=== PATIENT | female | born 1980 | race Caucasian/White ===

== ENCOUNTER 2022-10-14 13:03 | Emergency (ER) | payer BC, SELFPAY ==
[2022-10-14 13:15] VITALS: BP 133/83; PULSE 81; RESP 16; O2SAT 98
--- NOTE | 2022-10-14 13:24 | ED.SKABFB ---
HPI - Skin/Abscess/Foreign Bdy General Chief complaint: Skin/Abscess/Foreign Body Stated complaint: bug bite Time Seen by Provider: 10/14/22 13:15 Source: patient and RN notes reviewed Mode of arrival: ambulatory Limitations: dementia History of Present Illness HPI narrative: 42-year-old female presents concern for redness, warmth, tenderness on her 5th digit and at the base of the digit the right hand. Reports she was stung by a wasp on Friday. Reports she had been taking Benadryl and area was getting smaller. Reports morning the area is getting larger, more tender and was spreading down her hand. MD complaint: insect bite/sting and other (Redness) Related Data Allergies Allergy/AdvReac Type Severity Reaction Status Date / Time No Known Allergies Allergy Unverified 10/14/22 13:16 Review of Systems Review of Systems: CONSTITUTIONAL: Denies malaise, chills, sweats, or fever. EYES: Denies redness, or discharge. ENT: Denies rhinorrhea, congestion, swollen lips, swollen tongue CARDIOVASCULAR: Denies chest pain, palpitations, or edema. RESPIRATORY: Denies cough or dyspnea. GASTROINTESTINAL: Denies abdominal pain, nausea, vomiting SKIN: Reports redness, swelling, warmth, tenderness of the 5th digit and beneath the digit. Denies purulent drainage, vesicles, bullae, numbness, pain beyond proportion MUSCULOSKELETAL: Denies joint pain or myalgia. NEUROLOGIC: Denies headache. All systems reviewed & are unremarkable except as noted in HPI and below PMFSH Comments At time of signature, agree with nursing past medical, surgical, social and family history. There is no relevant family history pertinent to the presenting complaint Exam Narrative: GENERAL: Well-appearing, well-nourished, and in no acute distress. HEAD: Normocephalic, atraumatic. EYES: PERRLA, conjunctivae clear ENT: Mucous membranes moist. NECK: Supple. No lymphadenopathy CHEST: Clear to auscultation. No respiratory distress. HEART: Regular rate and rhythm. SKIN: Warm, dry. 6 cm x 3 cm area of erythema, induration, tenderness, warmth with sharp margins noted to the 5th digit the right hand extending below the digit into the hand. No vesicles, bullae, necrosis, ecchymosis, crepitus noted. NEURO: Alert and oriented x3. PSYCH: Normal mood and affect Course Course Emergency Course: Patient is aware of diagnosis, understands and agrees to treatment plan. Anticipatory guidance given. Patient agrees to follow-up as directed and is aware of reasons to seek care at the emergency department. Portions of this record may have been created with voice recognition software Level of Care: Express Care Visit Vital Signs Vital signs: Vital Signs Pulse Rate 81 10/14/22 13:15 Respiratory Rate 16 10/14/22 13:15 Blood Pressure 133/83 10/14/22 13:15 Pulse Oximetry 98 10/14/22 13:15 Oxygen Delivery Room Air 10/14/22 13:15 Pulse Rate 81 10/14/22 13:15 Respiratory Rate 16 10/14/22 13:15 Blood Pressure 133/83 10/14/22 13:15 Pulse Oximetry 98 10/14/22 13:15 Oxygen Delivery Room Air 10/14/22 13:15 Reviewed. MDM - Skin/Abscess/Foreign Bdy MDM Narrative Medical decision making narrative: Does not appear at this time to be erythema multiforme, bullous, SJS, TEN; no evidence at this time to suggest RMSF, NSTI, endocarditis or Lyme disease; patient looks well, nontoxic and is tolerating oral intake; no neurologic signs or symptoms; no headache, photophobia or neck pain; afebrile. Patient does not have history of of penetrating trauma, laceration, blunt trauma, recent surgery, immunosuppression, malignancy, obesity, alcoholism, corticosteroid use. Discussed the importance of follow-up, patient agrees; question, cellulitis versus necrotizing soft tissue infection versus abscess. Critical Care Time Critical Care Time Critical Care Time: No Discharge Plan Discharge Clinical Impression: Infected insect bite or sting Patient Disposition:
== END 2022-10-14 13:31 | disposition home or self-care (01) ==
PROVIDERS: Emergency Provider Nurse Practitioner; PCP Internal Medicine
DX: L08.9 Local infection of the skin and subcutaneous tissue, unspecified (principal); T63.461A Toxic effect of venom of wasps, accidental (unintentional), initial encounter
CPT/HCPCS: 99203; G0463

== ENCOUNTER 2022-11-11 08:14 | Emergency (ER) | payer BC, SELFPAY ==
[2022-11-11 08:28] VITALS: BP 153/80; PULSE 71; RESP 20; TEMP 36.6; O2SAT 99
--- NOTE | 2022-11-11 08:30 | ED.GENADULT ---
HPI - General Adult General Chief complaint: Extremity Problem,Nontraumatic Stated complaint: Left shoulder pain Source: patient and RN notes reviewed History of Present Illness HPI narrative: 42 yo F presents to urgent care with complaints of left posterior shoulder pain. Patient states she has been having this pain ever since she woke up on either or Friday last week. Patient reports pain with any kind of movement with her left shoulder is. Patient reports less pain when she holds her left arm over her head. Denies any numbness or tingling down her arm. Patient states the pain will radiate to her left upper arm. Denies any injury or trauma. Denies any fevers, chills, chest pain, or shortness of breath. Patient had made a sling for comfort. Patient has been using ibuprofen, Tylenol, and lidocaine patches at home without relief. Patient has also been applying warm and cold compresses without relief. Related Data Allergies Allergy/AdvReac Type Severity Reaction Status Date / Time No Known Allergies Allergy Unverified 11/11/22 08:50 Review of Systems Review of Systems: Pertinent positives and pertinent negatives per HPI. PMFSH Comments At the time of my signature, I reviewed and agree with the nursing past medical, surgical, social, and family history. There is no relevant family history pertinent to the patient complaint. Exam Narrative: GENERAL: This is a well-nourished, well-developed patient, in no apparent distress. HEAD: normocephalic, atraumatic. EYES:Sclera clear/white. Vision is grossly intact. EARS: External ears normal, auditory canals clear and without drainage. Hearing grossly intact. NOSE: External nose normal with no obvious nasal discharge, nares without redness, no rhinorrhea. THROAT: Mucous membranes moist, posterior pharynx clear. NECK: Neck supple, non-tender without lymphadenopathy, masses or thyromegaly. CARDIOVASCULAR: Regular rate and rhythm without murmurs, gallops, or rubs. RESPIRATORY: Clear to auscultation. Breath sounds equal bilaterally. No wheezes, rales, or rhonchi. SKIN: warm, intact with no suspicious lesions or rash, good texture and turgor. NEURO: awake, alert, and oriented to person, place and time. There were no obvious focal neurologic abnormalities. EXTREMITIES: No clubbing, cyanosis, or edema. No joint tenderness, effusion, or edema noted. Pt reports pain with any movement of her left shoulder. Pt reports less pain when she holds her left arm over her head. Course Course Level of Care: Express Care Visit Vital Signs Vital signs: Vital Signs Temperature 97.8 F 11/11/22 08:28 Pulse Rate 71 11/11/22 08:28 Respiratory Rate 20 11/11/22 08:28 Blood Pressure 153/80 H 11/11/22 08:28 Pulse Oximetry 99 11/11/22 08:28 Oxygen Delivery Room Air 11/11/22 08:28 Temperature 97.8 F 11/11/22 08:28 Pulse Rate 71 11/11/22 08:28 Respiratory Rate 20 11/11/22 08:28 Blood Pressure 153/80 H 11/11/22 08:28 Pulse Oximetry 99 11/11/22 08:28 Oxygen Delivery Room Air 11/11/22 08:28 Reviewed Medical Decision Making MDM Narrative Medical decision making narrative: Use the RICE method at home. May take ibuprofen and/or Tylenol if needed. If symptoms persist in 1 week after conservative treatment, follow-up with specialist. Differential Diagnosis Differential Diagnosis: Cervical radiculopathy, muscle strain, shoulder sprain Vital Signs Vital Signs: Vital Signs Temperature 97.8 F 11/11/22 08:28 Pulse Rate 71 11/11/22 08:28 Respiratory Rate 20 11/11/22 08:28 Blood Pressure 153/80 H 11/11/22 08:28 Pulse Oximetry 99 11/11/22 08:28 Oxygen Delivery Room Air 11/11/22 08:28 Temperature 97.8 F 11/11/22 08:28 Pulse Rate 71 11/11/22 08:28 Respiratory Rate 20 11/11/22 08:28 Blood Pressure 153/80 H 11/11/22 08:28 Pulse Oximetry 99 11/11/22 08:28 Oxygen Delivery Room Air 11/11/22 08:28 Critical Car
== END 2022-11-11 09:25 | disposition home or self-care (01) ==
PROVIDERS: Emergency Provider Nurse Practitioner Family; PCP Internal Medicine
DX: S46.912A Strain of unspecified muscle, fascia and tendon at shoulder and upper arm level, left arm, initial encounter (principal); X58.XXXA Exposure to other specified factors, initial encounter
CPT/HCPCS: 99213; G0463